=== PATIENT | female | born 1985 | race Caucasian/White ===

== ENCOUNTER → 2018-08-24 09:53 | Outpatient (CLI) | payer OTHER, SELFPAY ==
--- NOTE | 2018-08-24 | DI.US.S_ITS ---
PROCEDURE: US FINE NEEDLE ASPIRATION INDICATIONS: NONTOXIC MULTINODULAR GOITER TECHNIQUE: The indications, alternatives, benefits, risks, and complications of the procedure were explained to the patient. Written informed consent was obtained and placed in the chart. The thyroid region was examined sonographically and a site was chosen for ultrasound guided percutaneous sampling. The skin was prepared and draped in the usual fashion, and anesthetized with 1% lidocaine infiltrated from the skin down to the thyroid gland. Multiple passes were then performed, with contents emptied into an appropriate pathology specimen container. A bandage was applied to the area of access at completion of the study. COMPARISON: None. FINDINGS: Location(s) of lesion(s) sampled: Right mid and lower third thyroid lobe, combined cystic and solid mass, predominantly cystic. [place]: 25 gauge hypodermic needles. Number of passes: 7 total passes, 5 which were fine needle passes and 2 of which were passes with aspiration also utilized. In addition approximately 10 cc of brownish liquid were aspirated from the predominantly cystic mass, and provided for cytology. Medications: 1% lidocaine for local anaesthesia. Complications: None. IMPRESSION: Successful ultrasound-guided thyroid nodule fine needle aspiration, with cytology results pending. Please see chart below for management recommendations based on cytology results. [facility] ReportingRecommendationsNon-diagnostic* Repeat US-guided FNA, with on-site cytology evaluation if possible. * Repeated non-diagnostic nodules without high suspicion US features: close observation vs surgical consult. * Consider surgery if nodule has high suspicion US features, grows >20% in 2 dimensions on followup, or patient has clinical risk factors for malignancy. Benign* If nodule has high suspicion US features: repeat US and FNA within 12 months. * If nodule has low to intermediate suspicion US features: repeat US at 12-24 months. If nodule grows (20% increase in at least 2 dimensions, with minimal increase of 2 mm or >50% change in volume), or development of new suspicious US features, then repeat FNA or continue followup. * If nodule has very low suspicion US features: followup US at >24 months. Atypia of undetermined significance, follicular lesion of undetermined significanceRepeat FNA, molecular testing, followup US, or surgical consult.Follicular neoplasm, suspicious for follicular neoplasmSurgical consult; also consider molecular testing. Suspicious for malignancySurgical consult.MalignantSurgical consult. Dictated by: Curtis Tan M.D. on 08/24/2018 at 13:12 Approved by: Curtis Tan M.D. on 08/24/2018 at 13:14
--- NOTE | 2018-08-24 | PATH_ITS ---
Note [facility] Accession Number: [id number] TESTS RESULT FLAG UNITS REF RANGE LAB Clinician Provided Cytology Information No. of containers..01 ThinPrep Vial No. of containers..04 Previously Prepared Cytology Slide LEFT THYROID NODULE DIAGNOSIS: LEFT THYROID NODULE INADEQUATE, INSUFFICIENT CELLS FOR STUDY. [place] CATEGORY I. UNSATISFACTORY. Pathologist ICD10: E04.1 02 Amanda Krishnamurthy MD, Pathologist NPI- [id number] Bobby Osorio, Assurance Sourcing Manager ([facility]) 01 40 CC, BROWN, CLOUDY /VDU FLAG LEGEND: L-Low Normal,H-High Normal,LL-Alert Low,HH-Alert High <-Panic Low,>-Panic High,A-Abnormal,AA-Critical Abnormal Performed at: 01 =Z [facility] [address], [place] [address] Leonard Dorman MD, 02 LCLWA [facility] [address] [place] [id number] Analilia Perea MD, Performed at: 01 [facility] [address], [place], [place] [id number] MD Leonard Dorman MD Phone: [phone]
== END ==
PROVIDERS: Visit Provider Otolaryngology
DX: E04.2 Nontoxic multinodular goiter (principal)
CPT/HCPCS: 10005

== ENCOUNTER 2018-08-31 14:09 | Emergency (ER) | payer OTHER, SELFPAY ==
[2018-08-31 14:22] VITALS: BP 112/65; PULSE 77; RESP 14; TEMP 37.2; O2SAT 99
--- NOTE | 2018-08-31 14:56 | ED_ITS ---
HPI - URI/Sore Throat <NATE Mir - Last Filed: 08/31/18 22:14> General Chief Complaint: Upper Respiratory Symptoms Stated Complaint: stated been sick for awhile Time Seen by Provider: 08/31/18 14:12 Source: patient Mode of arrival: ambulatory Limitations: no limitations History of Present Illness HPI Narrative: 33-year-old female with history of anxiety that is a nonsmoker here for complaint of having cold-like symptoms on and off over the last several weeks. she reports she has had nasal congestion periodic cough and itchy sore throat on and off for month to 2 months. No known fevers. She states that her symptoms have Waned and waxed few times. no known fever. Positive p.o. intake no nausea or vomiting. She states the cough has been dry. With no productive cough. She reports that her family members have had similar symptoms as well. No other concerns or complaints at this timeframe. Related Data Home Medications Medication Instructions Recorded Confirmed acetaminophen [Mapap 650 mg PO Q6H PRN 08/31/18 08/31/18 (acetaminophen)] bupropion HCl 300 mg PO DAILY 08/31/18 08/31/18 fluocinonide 1 applic TOPICAL DIRECTED 08/31/18 08/31/18 fluoxetine 10 mg PO DAILY 08/31/18 08/31/18 ketoconazole 1 applic TOPICAL DIRECTED 08/31/18 08/31/18 methylphenidate HCl 36 mg PO DAILY 08/31/18 08/31/18 terbinafine HCl 250 mg PO DAILY 08/31/18 08/31/18 Previous Rx's Medication Instructions Recorded amoxicillin 500 mg PO BID #20 tab 08/31/18 Allergies Allergy/AdvReac Type Severity Reaction Status Date / Time No Known Drug Allergies Allergy Verified 08/31/18 14:26 Review of Systems <NATE Mir - Last Filed: 08/31/18 22:14> Constitutional Denies chills, Denies fever(s), Denies lethargy and Denies weakness Eyes Denies change in vision, Denies eye discharge, Denies irritation and Denies loss of vision ENT Ears, Nose, Mouth, and Throat: Reports nasal congestion, Reports sore throat and Denies throat swelling Cardiovascular Denies chest pain, Denies irregular heart rhythm, Denies lightheadedness, Denies palpitations and Denies orthopnea Respiratory Reports cough and Denies wheezing Gastrointestinal Gastrointestinal: Denies abdominal pain, Denies change in bowel habits, Denies diarrhea, Denies nausea and Denies vomiting Genitourinary Denies hematuria, Denies flank pain, Denies urinary incontinence and Denies urinary urgency Integumentary/Breasts Denies pruritus, Denies erythema, Denies rash and Denies wounds Neurologic Denies loss of vision and Denies weakness Endocrine Denies palpitations Allergic/Immunologic Denies urticaria, Denies throat swelling and Denies wheezing PFSH <NATE Mir - Last Filed: 08/31/18 22:14> Social History Smoking Status: Never smoker Social History Smoking Status: Never smoker Exam <NATE Mir - Last Filed: 08/31/18 22:14> Initial Vital Signs Initial Vital Signs: Vital Signs Temperature 98.9 F 08/31/18 14:22 Pulse Rate 77 08/31/18 14:22 Respiratory Rate 14 08/31/18 14:22 Blood Pressure 112/65 08/31/18 14:22 Pulse Oximetry 99 08/31/18 14:22 Const General: cooperative and well developed Nutritional Appearance: well nourished Orientation: alert, awake, oriented x3 and not confused HENMT Ears: hearing grossly normal bilaterally, external ears normal and TM's normal bilaterally Mouth: oral mucosae normal and moist mucous membranes Throat: posterior oropharynx normal Eyes General: appearance normal, both eyes and all related structures Eyelids: eyelids normal Conjunctivae: conjunctivae normal Sclera: sclerae normal Pupils: PERRL EOM: EOM intact bilaterally Resp Effort & Inspection: normal respiratory effort, able to speak in complete sentences, no respiratory distress and no use of accessory muscles Auscultation: clear to auscultation bilaterally, no rales, no rhonchi and no wheezes Cardio Rate: regular rate Rhythm: regular rhythm Heart Sounds: no click, no gallops, no murmurs and no rubs Pulses: normal peripheral pulses Neuro General: alert, oriented x3, gait normal and no focal motor deficits Speech: speech normal <Tejas Cheung DO - Last Filed: 09/01/18 07:10> Initial Vital Signs Initial Vital Signs: Vital Signs Temperature 98.9 F 08/31/18 14:22 Pulse Rate 77 08/31/18 14:22 Respiratory Rate 14 08/31/18 14:22 Blood Pressure 112/65 08/31/18 14:22 Pulse Oximetry 99 08/31/18 14:22 Course <NATE Mir - Last Filed: 08/31/18 22:14> Vital Signs - 8 hr 08/31/18 14:22 Temperature 98.9 F Pulse Rate 77 Respiratory Rate 14 Blood Pressure 112/65 Pulse Oximetry 99 <Tejas Cheung DO - Last Filed: 09/01/18 07:10> Vital Signs - 8 hr 08/31/18 14:22 Temperature 98.9 F Pulse Rate 77 Respiratory Rate 14 Blood Pressure 112/65 Pulse Oximetry 99 MDM - URI/Sore Throat <NATE Mir - Last Filed: 08/31/18 22:14> Lab Data Point of Care Testing Test Results Negative Rapid Strep A Negative Urine Dip Bedside Urine Glucose Negative Bedside Urine Bilirubin - Negative Bedside Urine Ketone - Negative Urine Specific [place] 1.015 Bedside Urine Occult Blood - Negative Bedside Urine pH 7.5 Bedside Urine Protein - Negative Bedside Urine Urobilinogen - Negative Bedside Urine Nitrite - Negative Bedside Urine Leukocytes - Negative Esterase MDM Narrative Medical decision making narrative: Rapid strep test was obtained and was negative however niece strep test returned as positive. Since they have similar symptoms will empirically treat with amoxicillin. Other Signs and symptoms presents as viral upper respiratory infection. History presents as having more than 1 viral upper respiratory infection over the past several weeks. Plenty of fluids and rest. Ovgy-nge-mmlgbhx Tylenol or Motrin as needed for any discomfort. Saline irrigation to nasal passages and hot showers to help with any congestion. Follow up with primary care provider. Return [facility] for any worsening symptoms. <Tejas Cheung DO - Last Filed: 09/01/18 07:10> Lab Data Point of Care Testing Test Results Negative Rapid Strep A Negative Urine Dip Bedside Urine Glucose Negative Bedside Urine Bilirubin - Negative Bedside Urine Ketone - Negative Urine Specific [place] 1.015 Bedside Urine Occult Blood - Negative Bedside Urine pH 7.5 Bedside Urine Protein - Negative Bedside Urine Urobilinogen - Negative Bedside Urine Nitrite - Negative Bedside Urine Leukocytes - Negative Esterase Discharge Plan Departure Patient Disposition: Home Clinical Impression: Upper respiratory infection Qualifiers: URI type: unspecified viral URI Qualified Code(s): J06.9 - Acute upper respiratory infection, unspecified Discharge Date/Time: 08/31/18 16:38 Interventions: ED Discharge Assessment Last Done: 08/31/18 16:37 Instructions: DI for Strep Throat, DI for Viral Upper Respiratory Infection -- Adult Activity Restrictions/Additional Instructions: Rapid strep test was obtained and was negative however with her niece being a positive will go ahead and treat with antibiotics amoxicillin use as directed.. Other Signs and symptoms presents as viral upper respiratory infection. History presents as having more than 1 viral upper respiratory infection over the past several weeks. Plenty of fluids and rest. Ufom-rto-zloatiy Tylenol or Motrin as needed for any discomfort. Saline irrigation to nasal passages and hot showers to help with any congestion. Follow up with primary care provider. Return emergency room for any worsening symptoms. Prescriptions: New amoxicillin 500 mg tablet 500 mg PO BID Qty: 20 RF: 0 No Action acetaminophen [Mapap (acetaminophen)] 325 mg tablet 650 mg PO Q6H PRN (Reason: pain) RF: 0 ketoconazole 2 % shampoo 1 applic topical DIRECTED RF: 0 terbinafine HCl 250 mg tablet 250 mg PO DAILY RF: 0 fluoxetine 10 mg capsule 10 mg PO DAILY RF: 0 fluocinonide 0.05 % solution 1 applic topical DIRECTED RF: 0 methylphenidate HCl 36 mg tablet extended release 24hr 36 mg PO DAILY RF: 0 bupropion HCl 300 mg tablet extended release 24 hr 300 mg PO DAILY RF: 0 Referrals: [facility] [Provider Group] Stand Alone Forms: Work Release Note <Tejas Cheung DO - Last Filed: 09/01/18 07:10> [place] ED Attending Harvey Attestation: I was available for consultation during this patient's emergency department encounter
== END 2018-08-31 16:38 | disposition home or self-care (01) ==
PROVIDERS: Emergency Provider Nurse Practitioner Family
DX: J06.9 Acute upper respiratory infection, unspecified (principal)
CPT/HCPCS: 81003; 81025; 87880; 99282; 99283

== ENCOUNTER 2018-10-10 14:42 | Emergency (ER) | payer OTHER, SELFPAY ==
[2018-10-10 15:03] VITALS: BP 116/79; PULSE 74; RESP 16; TEMP 36.8; O2SAT 98; BMI 24.6
--- NOTE | 2018-10-10 16:52 | ED_ITS ---
HPI - URI/Sore Throat <NATE Mir - Last Filed: 10/10/18 22:16> General Chief Complaint: Upper Respiratory Symptoms Stated Complaint: throat doesnt look right Time Seen by Provider: 10/10/18 16:27 Source: patient Mode of arrival: ambulatory Limitations: no limitations History of Present Illness HPI Narrative: 33-year-old female history of anxiety is a nonsmoker here for complaint of having redness to her throat and a little bit of throat irritation over the past couple of days. She is here with her niece and her daughter who had similar symptoms. No fevers. No nausea or vomiting. she denies any cough no nasal congestion. No other concerns or complaints at this time frame. She denies any stressors or relievers of her symptoms. Related Data Home Medications Medication Instructions Recorded Confirmed acetaminophen [Mapap 650 mg PO Q6H PRN 08/31/18 08/31/18 (acetaminophen)] bupropion HCl 300 mg PO DAILY 08/31/18 08/31/18 fluocinonide 1 applic TOPICAL DIRECTED 08/31/18 08/31/18 fluoxetine 10 mg PO DAILY 08/31/18 08/31/18 ketoconazole 1 applic TOPICAL DIRECTED 08/31/18 08/31/18 methylphenidate HCl 36 mg PO DAILY 08/31/18 08/31/18 terbinafine HCl 250 mg PO DAILY 08/31/18 08/31/18 Previous Rx's Medication Instructions Recorded amoxicillin 500 mg PO BID #20 tab 08/31/18 Allergies Allergy/AdvReac Type Severity Reaction Status Date / Time No Known Drug Allergies Allergy Verified 10/10/18 15:05 Review of Systems <NATE Mir - Last Filed: 10/10/18 22:16> Constitutional Denies chills, Denies fever(s), Denies lethargy and Denies weakness Eyes Denies change in vision, Denies eye discharge, Denies irritation and Denies loss of vision ENT Ears, Nose, Mouth, and Throat: Reports sore throat Cardiovascular Denies chest pain, Denies irregular heart rhythm, Denies lightheadedness, Denies palpitations, Denies dyspnea, Denies dyspnea on exertion and Denies orthopnea Respiratory Denies cough, Denies dyspnea, Denies dyspnea on exertion and Denies wheezing Gastrointestinal Gastrointestinal: Denies abdominal pain, Denies change in bowel habits, Denies diarrhea, Denies nausea and Denies vomiting Genitourinary Denies hematuria, Denies flank pain, Denies urinary incontinence and Denies urinary urgency Musculoskeletal Denies back pain, Denies muscle weakness, Denies numbness and Denies tingling Integumentary/Breasts Denies pruritus, Denies erythema, Denies rash and Denies wounds Neurologic Denies confusion, Denies loss of vision, Denies numbness, Denies tingling and Denies weakness Psychiatric Denies anxiety, Denies confusion, Denies depression, Denies homicidal ideation and Denies suicidal ideation Endocrine Denies palpitations Hematologic/Lymphatic Denies easy bruising Allergic/Immunologic Denies wheezing PFSH <NATE Mir - Last Filed: 10/10/18 22:16> Social History Smoking Status: Never smoker Exam <NATE Mir - Last Filed: 10/10/18 22:16> Initial Vital Signs Initial Vital Signs: Vital Signs Temperature 98.3 F 10/10/18 15:03 Pulse Rate 74 10/10/18 15:03 Respiratory Rate 16 10/10/18 15:03 Blood Pressure 116/79 10/10/18 15:03 Pulse Oximetry 98 10/10/18 15:03 Const General: cooperative and well developed Nutritional Appearance: well nourished Orientation: alert, awake, oriented x3 and not confused HENMT Mouth: oral mucosae normal and moist mucous membranes Throat: posterior oropharynx normal Eyes Conjunctivae: conjunctivae normal Sclera: sclerae normal Pupils: PERRL EOM: EOM intact bilaterally Resp Effort & Inspection: normal respiratory effort, able to speak in complete sentences, no respiratory distress and no use of accessory muscles Auscultation: clear to auscultation bilaterally, no rales, no rhonchi and no wheezes Cardio Rate: regular rate Rhythm: regular rhythm Heart Sounds: no click, no gallops, no murmurs and no rubs Pulses: normal peripheral pulses Skin General: no rashes or lesions noted, No jaundice and No petechiae Neuro General: alert, oriented x3, gait normal and no focal motor deficits Speech: speech normal <Daysi Izaguirre DO - Last Filed: 10/11/18 19:22> Initial Vital Signs Initial Vital Signs: Vital Signs Temperature 98.3 F 10/10/18 15:03 Pulse Rate 74 10/10/18 15:03 Respiratory Rate 16 10/10/18 15:03 Blood Pressure 116/79 10/10/18 15:03 Pulse Oximetry 98 10/10/18 15:03 Course <NATE Mir - Last Filed: 10/10/18 22:16> Vital Signs - 8 hr 10/10/18 15:03 Temperature 98.3 F Pulse Rate 74 Respiratory Rate 16 Blood Pressure 116/79 Pulse Oximetry 98 <Daysi Izaguirre DO - Last Filed: 10/11/18 19:22> Vital Signs - 8 hr 10/10/18 15:03 Temperature 98.3 F Pulse Rate 74 Respiratory Rate 16 Blood Pressure 116/79 Pulse Oximetry 98 MDM - URI/Sore Throat <NATE Mir - Last Filed: 10/10/18 22:16> Lab Data Point of Care Testing Rapid Strep A Negative MDM Narrative Medical decision making narrative: Strep swab was obtained was negative. Signs symptoms presents as a viral upper respiratory infection. Differential of seasonal allergies. Plenty of fluids and rest. Sxkv-sdy-zuczqib Tylenol Motrin as needed for any discomfort. Saline irrigation and nasal passages and hot showers to help with any congestion. Follow up with primary care provider next week. If continued symptoms recommend starting antihistamine such as Zyrtec, Carissa cpjy-brq-vmnskxk to see if it helps symptoms. For any worsening symptoms return to the emergency room. <Daysi Izaguirre DO - Last Filed: 10/11/18 19:22> Lab Data Point of Care Testing Rapid Strep A Negative Discharge Plan Departure Patient Disposition: Home Clinical Impression: Upper respiratory infection Qualifiers: URI type: unspecified viral URI Qualified Code(s): J06.9 - Acute upper respiratory infection, unspecified Discharge Date/Time: 10/10/18 17:12 Interventions: ED Discharge Assessment Last Done: 10/10/18 17:12 Instructions: DI for Viral Upper Respiratory Infection -- Adult Activity Restrictions/Additional Instructions: Strep swab was obtained was negative. Signs symptoms presents as a viral upper respiratory infection. Differential of seasonal allergies. Plenty of fluids and rest. Ainl-iiv-ouawmcx Tylenol Motrin as needed for any discomfort. Saline irrigation and nasal passages and hot showers to help with any congestion. Follow up with primary care provider next week. If continued symptoms recommend starting antihistamine such as Zyrtec, Carissa knts-inv-fqlzbmt to see if it helps symptoms. For any worsening symptoms return to the emergency room. Prescriptions: No Action acetaminophen [Mapap (acetaminophen)] 325 mg tablet 650 mg PO Q6H PRN (Reason: pain) RF: 0 ketoconazole 2 % shampoo 1 applic topical DIRECTED RF: 0 terbinafine HCl 250 mg tablet 250 mg PO DAILY RF: 0 fluoxetine 10 mg capsule 10 mg PO DAILY RF: 0 fluocinonide 0.05 % solution 1 applic topical DIRECTED RF: 0 methylphenidate HCl 36 mg tablet extended release 24hr 36 mg PO DAILY RF: 0 bupropion HCl 300 mg tablet extended release 24 hr 300 mg PO DAILY RF: 0 amoxicillin 500 mg tablet 500 mg PO BID Qty: 20 RF: 0 Referrals: [facility] [Provider Group] <Daysi Izaguirre DO - Last Filed: 10/11/18 19:22> [place] ED Attending Cosignature Attestation: I was immediately available in the department for consultation. This documentation has been reviewed and I agree with assessment and plan. Supervised by Daysi Izaguirre DO
== END 2018-10-10 17:12 | disposition home or self-care (01) ==
PROVIDERS: Emergency Provider Nurse Practitioner Family
DX: J06.9 Acute upper respiratory infection, unspecified (principal)
CPT/HCPCS: 87880; 99282

== ENCOUNTER 2019-05-12 11:30 | Emergency (ER) | payer OTHER, SELFPAY ==
[2019-05-12 11:43] VITALS: BP 113/75; PULSE 80; RESP 16; TEMP 36.6; O2SAT 100
== END 2019-05-12 13:28 | disposition left against medical advice (07) ==
PROVIDERS: Emergency Provider Emergency Medicine; PCP Family Medicine
CPT/HCPCS: 99282

== ENCOUNTER → 2019-05-29 14:11 | Outpatient (CLI) | payer OTHER, SELFPAY ==
--- NOTE | 2019-05-29 | DI.MG.S_ITS ---
UNILATERAL RIGHT DIGITAL DIAGNOSTIC MAMMOGRAM POST-NEEDLE BIOPSY: 05/29/2019 CLINICAL: Right breast mass. Comparison is made to exams dated: 10/20/2018 mammogram and 10/18/2018 mammogram - [facility]. The tissue of right breast is extremely dense, which lowers the sensitivity of mammography. Biopsy clip is at the biopsy site. IMPRESSION: Biopsy clip at the biopsy site. This exam was interpreted at Station ID: [id number]. NOTE: For mammograms, a report in lay terms will be sent to the patient. Approximately 15% of breast malignancies will not be visualized mammographically. In the management of a palpable breast mass, a negative mammogram must not discourage biopsy of a clinically suspicious lesion. Electronically Signed By: Yinka Stock M.D. fx/:05/29/2019 17:46:07 ACR BI-RADS Category n/a
--- NOTE | 2019-05-29 | DI.US.S_ITS ---
ULTRASOUND GUIDED BIOPSY RIGHT BREAST WITH POST MAMMOGRAPHIC AND ULTRASOUND IMAGIN05/29/2019 CLINICAL: Right breast mass. PATIENT CONSENT: Risks (minor bleeding, infection, vasovagal reaction and repeat procedure), benefits and alternatives were explained to the patient and written informed consent was obtained. Correlation is made to exams dated: 02/28/2019 ultrasound, 10/20/2018 mammogram, and 10/18/2018 mammogram - [facility]. An ultrasound guided biopsy using real-time ultrasound was performed for the oval mass located in the right breast at 10 o'clock middle depth. This was described on the previous ultrasound report. The skin was prepped in the usual manner. Local anesthetic was administered to the access site. The abnormality was approached from the lateral aspect. A 17 gauge biopsy needle was placed adjacent to the abnormality under ultrasound guidance. Once the needle was documented to be in the correct location, five specimens were obtained using an Achieve automated firing device. Post procedure mammographic and ultrasound imaging demonstrates the clip at the targeted area. The specimens were sent to the laboratory for pathological analysis. IMPRESSION: ULTRASOUND GUIDED BIOPSY BENIGN Ultrasound guided biopsy of the mass in the right breast middle depth was successful. Pathology indicates benign breast tissue with fibrocystic changes (FC). Pathology results are concordant with imaging findings. Return to annual screening is recommended. This exam was interpreted at Station ID: [id number]. tiesha Lockett M.D., M.D./:06/02/2019 14:02:23
--- NOTE | 2019-05-29 | PATH_ITS ---
[facility] Accession Number: [id number] . 01 Material submitted: . breast - RIGHT BREAST 10:00 MASS 4 CM FN . 01 Clinical history: . RIGHT BREAST MASS . 02 Diagnosis: Right Breast Mass, 10 o'clock, 4 cm from Nipple, Needle Core Biopsies: Breast parenchyma with fibrocystic changes. Negative for atypical hyperplasia, in situ or invasive carcinoma. MRV 05/30/2019 1339 Local . 02 Comment: As part of routine construction quality control manager, Dr. Perea has reviewed this case and agrees with the above diagnosis. . 02 Electronically signed: . Fabio Yoon MD, PhD, Pathologist NPI- [id number] . 01 Gross description: . Received in one formalin-filled container, labeled with the patient's name and designated right breast 10 o'clock mass 4 cm FN, are multiple 0.2-0.3 cm in diameter, cylindrical-shaped, yellow-hussein pieces of tissue which range in length from 0.7 cm to 1.2 cm. The specimen is entirely submitted in one cassette. Collection date: 05/29/19. Collection time per container: 3:06 p.m. Total fixation time: Approximately 11 hours. ([id number]) /[facility] 05/30/2019 0218 Local . 02 Pathologist provided ICD-10: N60.11 . 02 CPT . 951090 Performed at: 01 [facility] [address] [place] [address], [place], [place] [id number] MD Leonard Dorman MD Phone: [phone] Performed at: 02 [facility] [address] [place], [place] [id number] MD Analilia Perea MD Phone: [phone]
== END ==
PROVIDERS: PCP Family Medicine; Visit Provider Family Medicine
DX: N60.11 Diffuse cystic mastopathy of right breast (principal)
CPT/HCPCS: 19083; 77065

== ENCOUNTER 2019-07-15 19:31 | Emergency (ER) | payer OTHER, SELFPAY ==
[2019-07-15 19:44] VITALS: BP 118/78; PULSE 89; RESP 18; TEMP 36.7; O2SAT 100
--- NOTE | 2019-07-15 20:10 | PC.NURSE ---
Patient has swelling/bump to left face in front of her ear.
--- NOTE | 2019-07-16 05:54 | ED.EAR ---
HPI - Ear Problem General Chief complaint: Ear Stated complaint: lt ear infection/ side effect from stopping zoloft Time Seen by Provider: 07/15/19 19:45 Source: patient Mode of arrival: Ambulatory Limitations: no limitations History of Present Illness HPI Narrative: 34-year-old female nonsmoker with history of depression presents to the emergency department with a chief complaint of a swollen bump just anterior to her left ear. She denies any tenderness, redness or warmth. She denies fever or chills. She is not dizzy, weak or lightheaded.She denies runny nose or sore throat. She denies any dental pain or drainage. Location: left ear Duration: constant Severity: mild Discharge from ear: no Related Data Home Medications Medication Instructions Recorded Confirmed No Known Home Medications 07/15/19 07/15/19 Allergies Allergy/AdvReac Type Severity Reaction Status Date / Time No Known Drug Allergies Allergy Verified 07/15/19 19:48 Review of Systems Constitutional Constitutional: Denies chills, Denies fatigue, Denies fever(s), Denies frequent falls, Denies lethargy and Denies weakness Eyes Eyes: Denies change in vision, Denies eye discharge, Denies irritation and Denies loss of vision ENT Ears, Nose, Mouth, and Throat: Denies change in voice, Denies dizziness, Denies neck pain, Denies sore throat and Denies throat swelling Cardiovascular Cardiovascular: Denies chest pain, Denies irregular heart rhythm, Denies lightheadedness, Denies palpitations, Denies dyspnea, Denies dyspnea on exertion and Denies orthopnea Respiratory Respiratory: Denies cough, Denies dyspnea, Denies dyspnea on exertion and Denies wheezing Gastrointestinal Gastrointestinal: Denies abdominal pain, Denies change in bowel habits, Denies diarrhea, Denies nausea and Denies vomiting Genitourinary Genitourinary: Denies hematuria, Denies flank pain, Denies urinary incontinence and Denies urinary urgency Musculoskeletal Musculoskeletal: Denies back pain, Denies muscle weakness, Denies neck pain, Denies numbness and Denies tingling Integumentary/Breasts Skin/Breast: Denies pruritus, Denies erythema, Denies rash and Denies wounds Neurologic Neurologic: Denies behavioral changes, Denies confusion, Denies dizziness, Denies frequent falls, Denies loss of vision, Denies numbness, Denies tingling and Denies weakness Psychiatric Psychiatric: Denies anxiety, Denies behavioral changes, Denies confusion, Denies depression, Denies homicidal ideation and Denies suicidal ideation Endocrine Endocrine: Denies fatigue, Denies flushing and Denies palpitations Hematologic/Lymphatic Hematologic/Lymphatic: Denies easy bruising Allergic/Immunologic Allergic/Immunologic: Denies urticaria, Denies throat swelling and Denies wheezing Patient History Social History Smoking Status: Never smoker Smoking Status: Never smoker alcohol intake frequency: a few times a month Substance Use Type: does not use Exam Narrative Exam Narrative: GEN: AOx3 and in mild distress EYES: Pupils are equal, round, and reactive to light and accommodation. Extraoccular muscles are intact bilaterally. There is no subconjunctival hemorrhage or exudate. ENT: Tympanic membranes are clear bilaterally with no effusion, erythema or loss of landmarks. There is a a swollen preauricular node on the left side. No erythema, warmth or induration CHEST: Lungs are clear to auscultation bilaterally and free of wheezes, rales, or rhonchi. Heart rate is regular rhythm, there are no murmurs, clicks, rubs, or gallops. There is no chest wall tenderness. ABD: Abdomen is soft and nontender. There is no guarding or rebound. Bowel sounds are normal in all 4 quadrants. There is no mass or organomegaly. EXT: Full painless ROM of all extremities with no loss of sensation or strength. SKIN: Warm, pink, and dry. No erythema or rash Initial Vital Signs Initial Vital Signs: Vital Signs Temperature 98.1 F 07/15/19 19:44 Pulse Rate 89 07/15/19 19:44 Respiratory Rate 18 07/15/19 19:44 Blood Pressure 118/78 07/15/19 19:44 Pulse Oximetry 100 07/15/19 19:44 Discharge Plan Departure Patient Disposition: Home Clinical Impression: Lymphadenopathy, periauricular Discharge Date/Time: 07/15/19 20:11 Activity Restrictions/Additional Instructions: *You have been diagnosed with [left-sided preauricular lymphadenopathy] *What to do: *Take medications as directed *Follow up with your primary care provider in 2-3 days, call for an appointment. Let them know you were seen in the Emergency Department and that we ask that you be seen in follow up *Return to ER if you should have any new, worsening or concerning symptoms, such as [increasing swelling, pain, redness, warmth or other bothersome symptoms] Prescriptions: No Action No Known Home Medications RF: 0 Referrals: [address] [address] [Primary Care Provider] -
== END 2019-07-15 20:11 | disposition home or self-care (01) ==
PROVIDERS: Emergency Provider Emergency Medicine; PCP Family Medicine
DX: R59.0 Localized enlarged lymph nodes (principal)
CPT/HCPCS: 99281

== ENCOUNTER → 2020-02-06 10:46 | Outpatient (CLI) | payer OTHER, SELFPAY ==
--- NOTE | 2020-02-06 | DI.MG.S_ITS ---
BILATERAL DIGITAL SCREENING MAMMOGRAM 3D/2D WITH CAD: 02/06/2020 CLINICAL: Routine screening. Family history of breast cancer. Comparison is made to exams dated: 10/20/2018 mammogram and 10/18/2018 mammogram - [facility]. The tissue of both breasts is extremely dense, which lowers the sensitivity of mammography. Current study was also evaluated with a Computer Aided Detection (CAD) system. There are benign calcifications in the right breast. There also is a biopsy clip in the right breast. No significant masses, calcifications, or other findings are seen in either breast. There has been no significant interval change. IMPRESSION: There is no mammographic evidence of malignancy. A 1 year screening mammogram is recommended. This exam was interpreted at Station ID: [id number]. NOTE: For mammograms, a report in lay terms will be sent to the patient. Approximately 15% of breast malignancies will not be visualized mammographically. In the management of a palpable breast mass, a negative mammogram must not discourage biopsy of a clinically suspicious lesion. Electronically Signed By: Stefani motley/se:02/06/2020 12:56:11 letter sent: Normal Exam ACR BI-RADS Category 2: Benign Finding(s) 3342F
== END ==
PROVIDERS: PCP Family Medicine; Referring Provider Family Medicine; Visit Provider Family Medicine
DX: Z12.31 Encounter for screening mammogram for malignant neoplasm of breast (principal); Z80.3 Family history of malignant neoplasm of breast
CPT/HCPCS: 77063; 77067

== ENCOUNTER 2020-06-07 15:23 | Emergency (ER) | payer OTHER, SELFPAY ==
[2020-06-07 15:29] VITALS: BP 131/75; PULSE 77; RESP 18; TEMP 36.9; O2SAT 98; BMI 26.6
[2020-06-07 18:29] LABS: COVID19 -Nasal RAPID Negative (Negative)
--- NOTE | 2020-06-07 18:49 | ED_ITS ---
HPI - URI/Sore Throat <Vianca Castaneda PA-C - Last Filed: 06/07/20 19:47> General Chief Complaint: Upper Respiratory Symptoms Stated Complaint: cold symptoms 10 days, bloody nose Time Seen by Provider: 06/07/20 17:54 Source: patient Mode of arrival: Family Vehicle Limitations: no limitations History of Present Illness HPI Narrative: Melinda is a 34 yo female that presents with sinus pain and pressure x 10 days. She reports that her significant other had similar symptoms prior to this and symptoms improved on their own. She reports head feeling foggy. She denies ear pain. She explains that she did have throat pain in the beginning but that has since improved. She denies ear pain. She denies cough or shortness of breath. She reports chills. She denies fever. She reports body aches. She reports fatigue. She reports that she took dayquil and theraflu together with alcohol and began vomiting. She has not vomitted since. Related Data Previous Rx's Medication Instructions Recorded amoxicillin-pot clavulanate 1 tab PO BID 10 Days #20 tab 06/07/20 [Augmentin] Allergies Allergy/AdvReac Type Severity Reaction Status Date / Time No Known Drug Allergies Allergy Verified 06/07/20 15:34 Review of Systems <Vianca Castaneda PA-C - Last Filed: 06/07/20 19:47> Review of Systems Narrative: see HPI Constitutional Constitutional: Reports chills, Reports fatigue, Denies fever(s) and Reports headache(s) ENT Ears, Nose, Mouth, and Throat: Denies otalgia, Reports headache(s) and Denies sore throat Cardiovascular Cardiovascular: Denies dyspnea Respiratory Respiratory: Denies cough and Denies dyspnea Gastrointestinal Gastrointestinal: Denies abdominal pain, Denies constipation, Denies diarrhea, Reports nausea and Reports vomiting Musculoskeletal Musculoskeletal: Reports myalgias Neurologic Neurologic: Reports headache(s) Endocrine Endocrine: Reports fatigue Patient History <Vianca Castaneda PA-C - Last Filed: 06/07/20 19:47> Medical History (Updated 06/07/20 @ 18:52 by Vianca Castaneda PA-C) No active medical problems Social History Smoking Status: Never smoker Smoking Status: Never smoker alcohol intake frequency: a few times a month Substance Use Type: does not use Exam <Vianca Castaneda PA-C - Last Filed: 06/07/20 19:47> Initial Vital Signs Initial Vital Signs: Vital Signs Temperature 98.4 F 06/07/20 15:29 Pulse Rate 77 06/07/20 15:29 Respiratory Rate 18 06/07/20 15:29 Blood Pressure 131/75 06/07/20 15:29 Pulse Oximetry 98 06/07/20 15:29 Const General: cooperative, healthy appearing and comfortable HENOH Head: normal to inspection Ears: hearing grossly normal bilaterally, external ears normal and TM's normal bilaterally Nose: external nose normal Face and sinus: sinus tenderness frontal Mouth: oral mucosae normal Throat: posterior oropharynx normal Eyes Eyelids: eyelids normal Conjunctivae: conjunctivae normal Sclera: sclerae normal Resp Effort & Inspection: normal respiratory effort and able to speak in complete sentences Auscultation: clear to auscultation bilaterally and no wheezes Cardio Rate: regular rate Rhythm: regular rhythm Heart Sounds: S1 normal, S2 normal and no murmurs GI Palpation: soft, no hepatosplenomegaly and No tender Psych Speech and Movement: speech and movement normal Mood: congruent mood Affect: normal affect <Daysi Izaguirre DO - Last Filed: 06/11/20 08:57> Initial Vital Signs Initial Vital Signs: Vital Signs Temperature 98.4 F 06/07/20 15:29 Pulse Rate 77 06/07/20 15:29 Respiratory Rate 18 06/07/20 15:29 Blood Pressure 131/75 06/07/20 15:29 Pulse Oximetry 98 06/07/20 15:29 Scores <Vianca Castaneda PA-C - Last Filed: 06/07/20 19:47> GCS [place] coma scale eye opening: Spontaneous [place] coma scale verbal response: Orientated [place] coma scale motor response: Obey commands [place] coma scale total score: 15 Course <REJI Dooley Last Filed: 06/07/20 19:47> Course Course Narrative: 1839: Evaluated pt and discussed possibility of sinusitis 184: informed of negative covid, discussed antibiotics and treatment plan Orders Ordered: ED Orders 06/07/20 18:10 COVID19 Stat Vital Signs Vital signs: Vital Signs - 8 hr 06/07/20 15:29 06/07/20 18:55 Temperature 98.4 F Pulse Rate 77 65 Respiratory Rate 18 16 Blood Pressure 131/75 113/73 Pulse Oximetry 98 97 <Daysi Izaguirre DO - Last Filed: 06/11/20 08:57> Orders Ordered: ED Orders 06/07/20 18:10 COVID19 Stat Vital Signs Vital signs: Vital Signs - 8 hr 06/07/20 15:29 06/07/20 18:55 Temperature 98.4 F Pulse Rate 77 65 Respiratory Rate 18 16 Blood Pressure 131/75 113/73 Pulse Oximetry 98 97 MDM - URI/Sore Throat <Vianca Castaneda PA-C - Last Filed: 06/07/20 19:47> Differential Diagnosis Differential diagnosis: Likely upper respiratory infection, sinusitis and viral infection Medical Records Attestation: I reviewed the patient's medical records. Lab Data Attestation: I reviewed the patient's lab results. Labs: Lab Results 06/07/20 Range/Units 18:10 COVID-19 PCR Negative (Negative) Point of Care Testing Test Results Negative MDM Narrative Medical decision making narrative: 34 yo female presents with sinus pressure x 10 days. She was afebrile, non-tachycardic, non-tachypneic in office today. Her COVID was negative. Her history of phsyical exam was concerning for sinusitis. Since she has not improved for 10 days, higher chance this could be considered bacterial vs viral sinusitis. She reports that she is trying to get . Last ovulation was 12 days ago. She had negative test at home. We performed one here and it was negative as well. She is being started on augmentin at this time. She is to take tylenol as needed for sinus pain. She is to f/u with PCP if any persisting symptoms. Any evidence of worsening she was encouraged to come back to ER. She understood and agreed with current treatment plan. <Daysi Izaguirre DO - Last Filed: 06/11/20 08:57> Lab Data Labs: Lab Results 06/07/20 Range/Units 18:10 COVID-19 PCR Negative (Negative) Point of Care Testing Test Results Negative Discharge Plan Departure Patient Disposition: Home Clinical Impression: Sinusitis Qualifiers: Sinusitis location: unspecified location Chronicity: acute Recurrence: non- recurrent Qualified Code(s): J01.90 - Acute sinusitis, unspecified Instructions: DI for Sinusitis Activity Restrictions/Additional Instructions: Thank you for entrusting me with your care today. As discussed, your COVID was negative. Based on the sinus pain and pressure you are experiencing, I believe the cause of your symptoms to be sinusitis. I am starting you on Augmentin at this time. Please take tylenol as needed for symptom relief. Please follow up with your PCP for further management if symptoms persist. If they worsen, please return to ED for further evaluation and management. Prescriptions: New amoxicillin-pot clavulanate [Augmentin] 875-125 mg tablet 1 tab PO BID 10 Days Qty: 20 RF: 0 Referrals: [address] [address] [Primary Care Provider] - <Daysi Izaguirre DO - Last Filed: 06/11/20 08:57> Cosign ED Attending Cosignature Attestation: I was immediately available in the department for consultation. This documentation has been reviewed and I agree with assessment and plan. Supervised by Daysi Izaguirre DO
[2020-06-07 18:55] VITALS: BP 113/73; PULSE 65; RESP 16; O2SAT 97
== END 2020-06-07 19:06 | disposition home or self-care (01) ==
PROVIDERS: Nurse Practitioner Family; Emergency Provider Physician Assistant; PCP Family Medicine
DX: J01.90 Acute sinusitis, unspecified (principal)
CPT/HCPCS: 81025; 87635; 99281; 99282